=== PATIENT | female | born 1945 | race Caucasian/White ===

== ENCOUNTER 2019-05-24 17:34 | Emergency (ER) | payer MEDICARE ==
[2019-05-24] MEDS ORDERED: Sodium Chloride 0.9% 1000 ML 1,000 ML IV STA (18:00)
[2019-05-24] MEDS ORDERED: SUBLIMAZE 100 MCG/2 ML IV ONE (18:00)
[2019-05-24] MEDS ORDERED: Sodium Chloride 0.9% 1000 ML 1,000 ML ONE (18:14)
[2019-05-24] MEDS ORDERED: SUBLIMAZE 100 MCG/2 ML ONE (18:14)
--- NOTE | 2019-05-24 18:20 | ERPHSYRPT ---
- History of Present Illness Historian: patient Exam Limitations: no limitations Patient Subjective Stated Complaint: NIGHT SWEATING, CHILLS THIS AM, PAIN TO LEFT SIDE/ FLANK AND ABDOMEN, URGENCY, HESITANCY AND DIFFICULTY VOIDING. DENIES BURNING. Triage Nursing Assessment: PT ALERT AND ORIENTED. SITTING ON SIDE OF BED GUARDING LEFT SIDE, NO SHORTNESS OF BREATH OR CHEST PAIN. Timing/Duration: today Quality: cramping Abdominal Pain Onset Location: flank Pain Radiation: LLQ Severity of Pain-Max: moderate Severity of Pain-Current: moderate Hx Tetanus, Diphtheria Vaccination/Date Given: Yes (2012) Hx Influenza Vaccination/Date Given: No Hx Pneumococcal Vaccination/Date Given: No <YVONNE HELMS - Last Filed: 05/24/19 18:56> <LELA BONDS - Last Filed: 05/24/19 19:39> - History of Present Illness Time Seen by Provider: 05/24/19 18:18 Physician History: patient is 73-year-old female came to the emergency room with complaining of left-sided flank pain radiating to the left groin area 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 Patient is complaining of fever, chills and some burning urination. Patient states that she had a same symptoms like this when she had a kidney stone before. She denies any other symptoms. (YVONNE HELMS) Allergies/Adverse Reactions: hydrochlorothiazide Allergy (Verified 07/28/14 22:09) hydrocodone bitartrate [From Vicodin] Allergy (Verified 07/28/14 22:09) Home Medications: Clonidine HCl 0.2 mg PO BID 04/07/14 [History] Amlodipine Besylate 5 mg PO DAILY 05/24/19 [History] Lisinopril 20 mg [Zestril 20 MG] 40 mg PO DAILY 05/24/19 [History] carvediloL [Carvedilol] 6.25 mg PO BID 05/24/19 [History] - Review of Systems Constitutional: Fever, Chills Eyes: No Symptoms Ears, Nose, & Throat: No Symptoms Respiratory: No Cough, No Dyspnea Cardiac: No Chest Pain, No Edema, No Syncope Abdominal/Gastrointestinal: Abdominal Pain, No Nausea, No Vomiting, No Diarrhea Genitourinary Symptoms: Dysuria, Flank Pain (left side) Musculoskeletal: No Back Pain, No Neck Pain Skin: No Rash Neurological: No Dizziness, No Focal Weakness, No Sensory Changes Psychological: No Symptoms Endocrine: No Symptoms All Other Systems: Reviewed and Negative <SCOOTER,YVONNE - Last Filed: 05/24/19 18:56> - Past Medical History Pertinent Past Medical History: Yes Neurological History: Migraines ENT History: No Pertinent History Cardiac History: No Pertinent History, Hypertension Respiratory History: No Pertinent History Endocrine Medical History: No Pertinent History Musculoskeletal History: No Pertinent History GI Medical History: Gallbladder Disease History: Other Psycho-Social History: No Pertinent History Other Medical History: KIDNEY STONES - Past Surgical History Past Surgical History: Yes Gastrointestinal: Cholecystectomy Genitourinary: Kidney Surgery Musculoskeletal: Orthopedic Surgery Female Surgical History: Section, Tubal Ligation Other Surgical History: STENT TO BILATERAL KIDNEY, LEFT KNEE REPLACEMENT. LT THUMB. WISDOM TEETH - Social History Smoking Status: Never smoker Exposure to second hand smoke: No Drug Use: none Patient Lives Alone: No <SCOOTER,YVONNE - Last Filed: 05/24/19 18:56> - Physical Exam General Appearance: no apparent distress, alert Eye Exam: PERRL/EOMI, eyes nml inspection Ears, Nose, Throat Exam: normal ENT inspection, pharynx normal, moist mucous membranes Neck Exam: normal inspection, non-tender, supple, full range of motion Respiratory Exam: normal breath sounds, lungs clear, No respiratory distress Cardiovascular Exam: regular rate/rhythm, normal heart sounds Gastrointestinal/Abdomen Exam: soft, No tenderness, No mass Back Exam: normal inspection, normal range of motion, CVA tenderness (left side) , No vertebral tenderness Extremity Exam: normal inspection, normal range of motion, pelvis stable Neurologic Exam: alert, oriented x 3, cooperative, normal mood/affect, nml cerebellar function, sensation nml, No motor deficits Skin Exam: normal color, warm, dry <SCOOTER,YVONNE - Last Filed: 05/24/19 18:56> - Nursing Vital Signs Nursing Vital Signs: Initial Vital Signs Pulse Rate 62 05/24/19 17:34 Respiratory Rate 20 05/24/19 17:34 Blood Pressure 175/97 05/24/19 17:34 O2 Sat by Pulse Oximetry 98 05/24/19 17:34 Pain Scale Pain Intensity 7 - Course Nursing assessment & vital signs reviewed: Yes - CT Exams Abdomen/Pelvis CT Interpretation: Tele-radiologist Report <YVONNE HELMS - Last Filed: 05/24/19 18:56> - CT Exams Abdomen/Pelvis CT Interpretation: Other (Multiple left ureteral stones largest being 3.5 mm) <LELA BONDS - Last Filed: 05/24/19 19:39> Ordered Tests: Active Orders 24 hr Category Date Time Status ABDOMEN AND PELVIS W/0 CONTRAS [CT] Stat Exams 05/24/19 18:00 Taken CBC W DIFF Stat Lab 05/24/19 18:34 Completed CMP Stat Lab 05/24/19 18:34 Completed CULTURE,URINE Stat Lab 05/24/19 18:15 Received UA W/RFX UR CULTURE Stat Lab 05/24/19 18:15 Completed Medication Summary Generic Name Dose Route Start Last Admin Trade Name Freq PRN Reason Stop Dose Admin Tamsulosin HCl 0.4 mg 05/25/19 10:00 05/24/19 19:30 Flomax 0.4 Mg PO 06/24/19 09:59 0.4 mg DAILY SHERRY Administration Discontinued Medications Generic Name Dose Route Start Last Admin Trade Name Freq PRN Reason Stop Dose Admin Fentanyl Citrate 50 mcg 05/24/19 18:00 05/24/19 18:25 Sublimaze 100 Mcg/2 Ml IV 05/24/19 18:01 50 mcg STAT ONE Administration Fentanyl Citrate Confirm 05/24/19 18:14 Sublimaze 100 Mcg/2 Ml Administered 05/24/19 18:15 Dose 100 mcg .ROUTE .STK-MED ONE Sodium Chloride 1,000 mls @ 999 mls/hr 05/24/19 18:00 05/24/19 18:24 Sodium Chloride 0.9% 1000 Ml IV 05/24/19 19:00 999 mls/hr .Q1H1M STA Administration Sodium Chloride Confirm 05/24/19 18:14 Sodium Chloride 0.9% 1000 Ml Administered 05/24/19 18:15 Dose 1,000 mls @ ud .ROUTE .STK-MED ONE Ceftriaxone Sodium/Dextrose 1 g in 50 mls @ 100 mls/hr 05/24/19 18:43 18:59 Rocephin 1 Gm-D5w 50 Ml Bag IV 05/24/19 19:12 100 mls/hr STAT STA 100 mls/hr Administration Ceftriaxone Sodium/Dextrose Confirm 05/24/19 18:57 Rocephin 1 Gm-D5w 50 Ml Bag Administered 05/24/19 18:58 Dose 1 g in 50 mls @ ud IV .[facility] ONE Tamsulosin HCl Confirm 05/24/19 19:29 Flomax 0.4 Mg Administered 05/24/19 19:30 Dose 0.4 mg .ROUTE .STK-MED ONE Lab/Rad Data: Laboratory Result Diagrams 05/24/19 18:34 05/24/19 18:34 Laboratory Results 05/24/19 05/24/19 05/24/19 Range/Units 18:34 18:34 18:15 WBC 10.7 H (4.0-10.5) K/mm3 RBC 4.65 (4.1-5.4) M/mm3 Hgb 14.9 (12.0-16.0) gm/dl Hct 43.0 (35-47) % MCV 92.5 (78-100) fl MCH 32.0 (26-32) pg MCHC 34.7 (32-36) g/dl RDW 13.6 (11.5-14.0) % Plt Count 261 (150-450) K/mm3 MPV 10.5 (7.5-11.0) fl Gran % 80.9 H (36.0-66.0) % Eos # (Auto) 0.17 (0-0.5) Absolute Lymphs (auto) 1.22 (1.0-4.6) Absolute Monos (auto) 0.63 (0.0-1.3) Lymphocytes % 11.4 L (24.0-44.0) % Monocytes % 5.9 (0.0-12.0) % Eosinophils % 1.6 (0.00-5.0) % Basophils % 0.2 (0.0-0.4) % Absolute Granulocytes 8.69 H (1.4-6.9) Basophils # 0.02 (0-0.4) Sodium 142 (137-145) mmol/L Potassium 3.7 (3.5-5.1) mmol/L Chloride 109 H (98-107) mmol/L Carbon Dioxide 27 (22-30) mmol/L Anion Gap 10.4 (5-15) MEQ/L BUN 20 H (7-17) mg/dL Creatinine 0.84 (0.52-1.04) mg/dL Estimated GFR > 60.0 ML/MIN Glucose 100 (74-106) mg/dL Calcium 9.6 (8.4-10.2) mg/dL Total Bilirubin 0.50 (0.2-1.3) mg/dL AST 24 (14-36) U/L ALT 19 (0-35) U/L Alkaline Phosphatase 92 (38-126) U/L Serum Total Protein 7.6 (6.3-8.2) g/dL Albumin 4.2 (3.5-5.0) g/dL Urine Color YELLOW (YELLOW) Urine Appearance CLOUDY (CLEAR) Urine pH 5.0 (5-6) Ur Specific [place] 1.015 (1.005-1.025) Urine Protein NEGATIVE (Negative) Urine Ketones NEGATIVE (NEGATIVE) Urine Blood LARGE (0-5) Baldev/ul Urine Nitrite NEGATIVE (NEGATIVE) Urine Bilirubin NEGATIVE (NEGATIVE) Urine Urobilinogen 2 (0-1) mg/dL Ur Leukocyte Esterase NEGATIVE (NEGATIVE) Urine WBC (Auto) 11-15 (0-5) /HPF Urine RBC (Auto) >101 (0-2) /HPF U Epithel Cells (Auto) FEW (FEW) /HPF Urine Bacteria (Auto) MODERATE (NEGATIVE) /HPF Unidentified Crystals 25-50 (NEGATIVE) /HPF Urine Mucus (Auto) SLIGHT (NEGATIVE) /HPF Urine Culture Reflexed YES (NO) Urine Glucose NEGATIVE (NEGATIVE) mg/dL <YVONNE HELMS - Last Filed: 05/24/19 18:56> - Progress Progress: improved Will see patient in: office Counseled pt/family regarding: lab results, diagnosis, need for follow-up, rad results <LELA BONDS - Last Filed: 05/24/19 19:39> - Progress Progress Note: 05/24/19 19:14 Scan results show multiple left ureteral stones with the largest stone being 3.5 mm. Hydronephrosis and hydroureter also noted. Discussed with patient the results and patient would like to see Dr. Myles and be transferred to [facility]. 05/24/19 19:36 At 1910, spoke with Dr. Kan who is covering for Dr. Myles. Stated that patient can be seen as an outpatient if the pain is well controlled. Can be seen on Sunday by Dr. Myles for further management. Discussed with patient as well who states she would like to go home as long as she has medicines to take care of it. Although she lives alone she does have family support nearby. Prescribed Flomax, Percocet, Zofran ODT and will advise hydration. Will discharge home. (LELA BONDS) <YVONNE HELMS - Last Filed: 05/24/19 18:56> - Departure Departure Disposition: Home Critical Care Time: No <LELA BONDS - Last Filed: 05/24/19 19:39> - Departure Clinical Impression: Kidney calculus Condition: Stable Referrals: MAVERICK JACOB FILLER SHAKER [Primary Care Provider] - Follow Up with PCP/3 days NEY MYLES [COURTESY STAFF] - (Multiple left kidney stones, largest 3.5mm. Call on Sunday for appointment.) Instructions: Kidney Stones in Adults Additional Instructions: Drink plenty of water. Take medication as prescribed. Call Dr. Myles's office on Sunday for appointment and to be seen. Forms: Work/School Release Form Prescriptions: Ondansetron ODT 4 MG [Zofran Odt 4 mg] 4 mg PO Q6H PRN PRN #10 tab.rapdis PRN Reason: Vomiting Oxycodone HCl/Acetaminophen [Percocet 5-325 mg Tablet] 1 each PO Q6H PRN PRN 3 Days #12 tablet MDD 30mg PRN Reason: Pain Tamsulosin HCl 0.4 mg [Flomax 0.4 MG] 0.4 mg PO DAILY 5 Days #5 cap
[2019-05-24 18:22] LABS: Appearance CLOUDY (CLEAR); Bacteria MODERATE /HPF (NEGATIVE); Bilirubin NEGATIVE (NEGATIVE); Blood LARGE Ery/ul (0-5); Crystals Unidentified 25-50 /HPF (NEGATIVE); Epithelial Cells FEW /HPF (FEW); Glucose NEGATIVE (NEGATIVE); Ketones NEGATIVE (NEGATIVE); Leukocyte Esterase NEGATIVE (NEGATIVE); Mucus SLIGHT /HPF (NEGATIVE); Nitrite NEGATIVE (NEGATIVE); Protein,Urine Dip NEGATIVE (Negative); Specific Gravity 1.015 (1.005-1.025); Urobilinogen 2 mg/dL (0-1)
[2019-05-24 18:23] LABS: RBC >101 /HPF (0-2)
[2019-05-24 18:39] LABS: Absolute Neutrophil Ct (ANC) 8.69 (1.4-6.9); BASOPHIL % 0.2 % (0.0-0.4); Basophil (Absolute #) 0.02 (0-0.4); Eosinophil % 1.6 % (0.00-5.0); Eosinophil (Absolute #) 0.17 (0-0.5); Hemoglobin 14.9 gm/dl (12.0-16.0); Lymphocyte (Absolute #) 1.22 (1.0-4.6); Lymphocytes % 11.4 % (24.0-44.0); Mean Cell Volume 92.5 fl (78-100); Mean Corpuscular Hgb Concent. 34.7 g/dl (32-36); Mean Platelet Volume 10.5 fl (7.5-11.0); Monocyte (Absolute #) 0.63 (0.0-1.3); Monocytes % 5.9 % (0.0-12.0); Neutrophil % 80.9 % (36.0-66.0); Platelet Count 261 K/mm3 (150-450); Red Blood Count 4.65 M/mm3 (4.1-5.4); Red Cell Distribution Width 13.6 % (11.5-14.0); White Blood Count 10.7 K/mm3 (4.0-10.5)
[2019-05-24] MEDS ORDERED: ROCEPHIN 1 Gm-D5w 50 ml Bag** 1 G/50 ML IVPB IV STA (18:43)
[2019-05-24 18:51] LABS: ALBUMIN 4.2 g/dL (3.5-5.0); BLOOD UREA NITROGEN 20 mg/dL (7-17); CHLORIDE 109 mmol/L (98-107); Calcium 9.6 mg/dL (8.4-10.2); Carbon Dioxide 27 mmol/L (22-30); Creatinine 1 0.84 mg/dL (0.52-1.04); Glucose 100 mg/dL (74-106); Potassium 3.7 mmol/L (3.5-5.1); SGOT/AST 24 U/L (14-36); SODIUM 142 mmol/L (137-145); Total Protein 7.6 g/dL (6.3-8.2)
[2019-05-24 18:52] LABS: ALKALINE PHOSPHATASE 92 U/L (38-126); ANION GAP 10.4 MEQ/L (5-15); SGPT/ALT 19 U/L (0-35)
[2019-05-24] MEDS ORDERED: ROCEPHIN 1 Gm-D5w 50 ml Bag** 1 G/50 ML IVPB IV ONE (18:57)
[2019-05-24] MEDS ORDERED: Flomax 0.4 MG ONE (19:29)
[2019-05-24 20:12] VITALS: BP 187/97; PULSE 75; O2SAT 99
--- NOTE | 2019-05-24 21:24 | XRAY ---
Indication: Left flank pain. Multiple contiguous axial images obtained through the abdomen and pelvis without contrast as ordered. Comparison: CT renal stone study March 23, 2012. Lung bases are clear. Heart is not enlarged. Stable small hiatal hernia. Noncontrasted stomach and bowel loops appear nonobstructed. Normal appendix. Again scattered colonic diverticulosis, increased in the descending colon. No free fluid/air. Again previous cholecystectomy. New 3-4 mm distal left ureter calculus, approximately S2 level. Proximal left ureter is prominent along with moderate hydronephrosis and mild renal edema consistent with obstructive uropathy. There remains multiple bilateral renal microcalculi. Remaining liver, pancreas, spleen, adrenal glands, kidneys, ureters, and uterus appear unremarkable for noncontrast exam. Mild scattered aortoiliac calcifications without AAA. Osseous structures intact again with mild degenerative spondylosis throughout the spine and minimal grade 1 L4 spondylolisthesis. Impression: 1. New 3-4 mm distal left ureteral calculus producing obstruction as detailed. There remains multiple bilateral renal microcalculi. 2. Again incidental small hiatal hernia, colonic diverticulosis, and chronic bony findings. Comment: Preliminary interpretation was made by [facility]. No critical discrepancy.
[2019-05-25] MEDS ORDERED: Flomax 0.4 MG PO SCH (10:00)
== END 2019-05-24 20:12 | disposition home or self-care (01) ==
LOC: ED 17:34
DX: N20.0 Calculus of kidney (principal)
CPT/HCPCS: 36000; 36415; 74176; 80053; 81001; 85025; 87086; 96360; 96365; 96374; 99284; J0696; J3010; A9270-GY

== ENCOUNTER 2021-02-23 02:44 | Emergency (ER) | payer MEDICARE ==
[2021-02-23] MEDS ORDERED: TORAdol 30 mg Injection ONE (03:24)
[2021-02-23] MEDS ORDERED: Zofran 4 MG/2 ML VIAL ONE (03:24)
[2021-02-23] MEDS ORDERED: Sodium Chloride 0.9% 1000 ML 1,000 ML ONE (03:25)
[2021-02-23] MEDS ORDERED: MORPHINE SULFATE 4 MG INJ ONE (03:25)
[2021-02-23] MEDS: Zofran 4 MG/2 ML VIAL IV ONE (03:33)
[2021-02-23] MEDS: TORAdol 30 mg Injection IV ONE (03:33)
[2021-02-23] MEDS ORDERED: MORPHINE SULFATE 2 MG INJ ONE ×2 (03:35→06:47)
[2021-02-23] MEDS: MORPHINE SULFATE 2 MG INJ IV ONE ×2 (03:35→06:56)
[2021-02-23 03:39] LABS: Appearance CLEAR (CLEAR); Bilirubin NEGATIVE (NEGATIVE); Blood NEGATIVE Ery/ul (0-5); Epithelial Cells RARE /HPF (FEW); Glucose NEGATIVE (NEGATIVE); Ketones NEGATIVE (NEGATIVE); Leukocyte Esterase TRACE (NEGATIVE); Mucus SLIGHT /HPF (NEGATIVE); Nitrite NEGATIVE (NEGATIVE); Protein,Urine Dip NEGATIVE (Negative); Specific Gravity 1.005 (1.005-1.025); Urobilinogen NEGATIVE mg/dL (0-1)
[2021-02-23] MEDS: Sodium Chloride 0.9% 1000 ML 1,000 ML IV SCH (03:39)
[2021-02-23 03:41] LABS: Absolute Neutrophil Ct (ANC) 6.23 (1.4-6.9); BASOPHIL % 0.2 % (0.0-0.4); Basophil (Absolute #) 0.02 (0-0.4); Eosinophil % 1.7 % (0.00-5.0); Eosinophil (Absolute #) 0.14 (0-0.5); Hematocrit 42.3 % (35-47); Hemoglobin 13.7 gm/dl (12.0-16.0); Lymphocyte (Absolute #) 1.22 (1.0-4.6); Lymphocytes % 14.8 % (24.0-44.0); Mean Corpuscular Hemoglobin 30.4 pg (26-32); Mean Corpuscular Hgb Concent. 32.4 g/dl (32-36); Monocyte (Absolute #) 0.63 (0.0-1.3); Monocytes % 7.6 % (0.0-12.0); Neutrophil % 75.7 % (36.0-66.0); Platelet Count 227 K/mm3 (150-450); Red Cell Distribution Width 13.2 % (11.5-14.0); White Blood Count 8.2 K/mm3 (4.0-10.5)
--- NOTE | 2021-02-23 03:49 | ERPHSYRPT ---
- History of Present Illness Time Seen by Provider: 02/23/21 02:50 Historian: patient Exam Limitations: no limitations Physician History: This is a 75-year-old white female who presents with right flank pain that radiates into the right groin that has been present for several days. The symptoms were intermittent until approximately 10 PM when the pain was worsening and became more constant. Patient has history of recurrent ureterolithiasis on multiple occasions. She has a history of hypertension. Patient denies chest pain. She denies shortness of breath. Timing/Duration: yesterday (Worsened last night at 10 PM), day(s) (Intermittent for few days), worse Quality: aching Abdominal Pain Onset Location: flank (Right flank) Pain Radiation: groin (Right) Severity of Pain-Max: moderate (side) Severity of Pain-Current: moderate Modifying Factors: Improves With: nothing Associated Symptoms: denies symptoms Previous symptoms: same symptoms as today Allergies/Adverse Reactions: hydrochlorothiazide Allergy (Verified 02/23/21 06:39) hydrocodone bitartrate [From Vicodin] Allergy (Verified 02/23/21 06:39) Home Medications: Clonidine HCl 0.2 mg PO BID 04/07/14 [History] Amlodipine Besylate 5 mg PO DAILY 05/24/19 [History] Lisinopril 20 mg [Zestril 20 MG] 40 mg PO DAILY 05/24/19 [History] carvediloL [Carvedilol] 6.25 mg PO BID 05/24/19 [History] Hx Tetanus, Diphtheria Vaccination/Date Given: Yes (2012) Hx Influenza Vaccination/Date Given: No Hx Pneumococcal Vaccination/Date Given: No Travel Risk - International Travel Have you traveled outside of the country in past 3 weeks: No - Coronavirus Screening Are you exhibiting any of the following symptoms?: No Close contact with a COVID-19 positive Pt in past 14-21 Days: No - Review of Systems Constitutional: No Symptoms Eyes: No Symptoms Ears, Nose, & Throat: No Symptoms Respiratory: No Symptoms Cardiac: No Symptoms Genitourinary Symptoms: Flank Pain (Right side) Musculoskeletal: No Symptoms Skin: No Symptoms Neurological: No Symptoms Psychological: No Symptoms Endocrine: No Symptoms Hematologic/Lymphatic: No Symptoms Immunological/Allergic: No Symptoms All Other Systems: Reviewed and Negative - Past Medical History Pertinent Past Medical History: Yes Neurological History: Migraines ENT History: No Pertinent History Cardiac History: No Pertinent History, Hypertension Respiratory History: No Pertinent History Endocrine Medical History: No Pertinent History Musculoskeletal History: No Pertinent History GI Medical History: Gallbladder Disease History: Other Psycho-Social History: No Pertinent History Other Medical History: KIDNEY STONES - Past Surgical History Past Surgical History: Yes Gastrointestinal: Cholecystectomy Genitourinary: Kidney Surgery Musculoskeletal: Orthopedic Surgery Female Surgical History: Section, Tubal Ligation Other Surgical History: STENT TO BILATERAL KIDNEY, LEFT KNEE REPLACEMENT. LT THUMB. WISDOM TEETH - Social History Smoking Status: Never smoker Exposure to second hand smoke: No Drug Use: none Patient Lives Alone: No - Nursing Vital Signs Nursing Vital Signs: Initial Vital Signs Temperature 98.4 F 02/23/21 02:46 Pulse Rate 68 02/23/21 02:46 Respiratory Rate 18 02/23/21 02:46 Blood Pressure 179/84 02/23/21 02:46 O2 Sat by Pulse Oximetry 97 02/23/21 02:46 Pain Scale Pain Intensity 4 - Physical Exam General Appearance: mild distress, alert, anxiety, obese Eye Exam: PERRL/EOMI, eyes nml inspection Ears, Nose, Throat Exam: normal ENT inspection, moist mucous membranes Neck Exam: normal inspection, non-tender, supple, full range of motion Respiratory Exam: normal breath sounds, lungs clear, airway intact, No chest tenderness, No respiratory distress Cardiovascular Exam: regular rate/rhythm, normal heart sounds, normal peripheral pulses Gastrointestinal/Abdomen Exam: soft, normal bowel sounds, No tenderness Pelvic Exam: not done Rectal Exam: not done Back Exam: normal inspection, normal range of motion, CVA tenderness (Right side), No vertebral tenderness Extremity Exam: normal inspection, normal range of motion, pelvis stable Neurologic Exam: alert, oriented x 3, cooperative, estimating manager II-XII nml as tested, normal mood/affect, nml cerebellar function, nml station & gait, sensation nml Skin Exam: normal color, warm, dry Lymphatic Exam: No adenopathy SpO2 Interpretation: normal O2 Delivery: Room Air - Course Nursing assessment & vital signs reviewed: Yes Ordered Tests: Active Orders 24 hr Category Date Time Status IV Insertion STAT Care 02/23/21 03:13 Active ABDOMEN AND PELVIS W/0 CONTRAS [CT] Stat Exams 02/23/21 04:52 Taken AMYLASE Stat Lab 02/23/21 03:36 Completed CBC W DIFF Stat Lab 02/23/21 03:36 Completed CMP Stat Lab 02/23/21 03:36 Completed LIPASE Stat Lab 02/23/21 03:36 Completed Lactic Acid Stat Lab 02/23/21 04:45 Completed UA W/RFX UR CULTURE Stat Lab 02/23/21 03:14 Completed Medication Summary Generic Name Dose Route Start Last Admin Trade Name Indy PRN Reason Stop Dose Admin Sodium Chloride 1,000 mls @ 100 mls/hr 02/23/21 03:15 02/23/21 03:39 Sodium Chloride 0.9% 1000 Ml IV 03/25/21 03:14 100 mls/hr .Q10H SHERRY Administration Ceftriaxone Sodium/Dextrose 1 g in 50 mls @ 100 mls/hr 02/23/21 06:39 Rocephin 1 Gm-D5w 50 Ml Bag IV 02/23/21 07:08 STAT STA Discontinued Medications Generic Name Dose Route Start Last Admin Trade Name Indy PRN Reason Stop Dose Admin Ketorolac Tromethamine 30 mg 02/23/21 03:15 02/23/21 03:33 Ketorolac Tromethamine 30 Mg/Ml Inj IV 02/23/21 03:16 30 mg STAT ONE Administration Ketorolac Tromethamine Confirm 02/23/21 03:24 Ketorolac Tromethamine 30 Mg/Ml Inj Administered 02/23/21 03:25 Dose 30 mg .ROUTE .STK-MED ONE Morphine Sulfate 2 mg 02/23/21 03:15 02/23/21 03:35 Morphine Sulfate 2 Mg/Ml Inj IV 02/23/21 03:16 2 mg STAT ONE Administration Morphine Sulfate Confirm 02/23/21 03:25 Morphine Sulfate 4 Mg/Ml Injection Administered 02/23/21 03:26 Dose 4 mg .ROUTE .STK-MED ONE Morphine Sulfate Confirm 02/23/21 03:35 Morphine Sulfate 2 Mg/Ml Inj Administered 02/23/21 03:36 Dose 2 mg .ROUTE .STK-MED ONE Morphine Sulfate 2 mg 02/23/21 06:36 Morphine Sulfate 2 Mg/Ml Inj IV 02/23/21 06:37 STAT ONE Ondansetron HCl 4 mg 02/23/21 03:13 02/23/21 03:33 Ondansetron Hcl 4 Mg/2 Ml Vial IV 02/23/21 03:14 4 mg STAT ONE Administration Ondansetron HCl Confirm 02/23/21 03:24 Ondansetron Hcl 4 Mg/2 Ml Vial Administered 02/23/21 03:25 Dose 4 mg .ROUTE .STK-MED ONE Lab/Rad Data: Laboratory Result Diagrams 02/23/21 03:36 02/23/21 03:36 Laboratory Results 02/23/21 02/23/21 02/23/21 Range/Units 04:45 03:36 03:36 WBC 8.2 (4.0-10.5) K/mm3 RBC 4.50 (4.1-5.4) M/mm3 Hgb 13.7 (12.0-16.0) gm/dl Hct 42.3 (35-47) % MCV 94.0 (78-100) fl MCH 30.4 (26-32) pg MCHC 32.4 (32-36) g/dl RDW 13.2 (11.5-14.0) % Plt Count 227 (150-450) K/mm3 MPV 10.0 (7.5-11.0) fl Gran % 75.7 H (36.0-66.0) % Eos # (Auto) 0.14 (0-0.5) Absolute Lymphs (auto) 1.22 (1.0-4.6) Absolute Monos (auto) 0.63 (0.0-1.3) Lymphocytes % 14.8 L (24.0-44.0) % Monocytes % 7.6 (0.0-12.0) % Eosinophils % 1.7 (0.00-5.0) % Basophils % 0.2 (0.0-0.4) % Absolute Granulocytes 6.23 (1.4-6.9) Basophils # 0.02 (0-0.4) Sodium 139 (137-145) mmol/L Potassium 4.1 (3.5-5.1) mmol/L Chloride 107 (98-107) mmol/L Carbon Dioxide 23 (22-30) mmol/L Anion Gap 13.3 (5-15) MEQ/L BUN 21 H (7-17) mg/dL Creatinine 1.03 (0.52-1.04) mg/dL Estimated GFR 55.7 ML/MIN Glucose 99 (74-106) mg/dL Lactic Acid 1.1 (0.4-2.0) Calcium 9.3 (8.4-10.2) mg/dL Total Bilirubin 0.70 (0.2-1.3) mg/dL AST 23 (14-36) U/L ALT 20 (0-35) U/L Alkaline Phosphatase 81 (38-126) U/L Serum Total Protein 6.6 (6.3-8.2) g/dL Albumin 3.8 (3.5-5.0) g/dL Amylase 50 (30-110) U/L Lipase 78 (23-300) U/L Urine Color (YELLOW) Urine Appearance (CLEAR) Urine pH (5-6) Ur Specific [place] (1.005-1.025) Urine Protein (Negative) Urine Ketones (NEGATIVE) Urine Blood (0-5) Baldev/ul Urine Nitrite (NEGATIVE) Urine Bilirubin (NEGATIVE) Urine Urobilinogen (0-1) mg/dL Ur Leukocyte Esterase (NEGATIVE) Urine WBC (Auto) (0-5) /HPF Urine RBC (Auto) (0-2) /HPF U Epithel Cells (Auto) (FEW) /HPF Urine Bacteria (Auto) (NEGATIVE) /HPF Urine Mucus (Auto) (NEGATIVE) /HPF Urine Culture Reflexed (NO) Urine Glucose (NEGATIVE) mg/dL 02/23/21 Range/Units 03:14 WBC (4.0-10.5) K/mm3 RBC (4.1-5.4) M/mm3 Hgb (12.0-16.0) gm/dl Hct (35-47) % MCV (78-100) fl MCH (26-32) pg MCHC (32-36) g/dl RDW (11.5-14.0) % Plt Count (150-450) K/mm3 MPV (7.5-11.0) fl Gran % (36.0-66.0) % Eos # (Auto) (0-0.5) Absolute Lymphs (auto) (1.0-4.6) Absolute Monos (auto) (0.0-1.3) Lymphocytes % (24.0-44.0) % Monocytes % (0.0-12.0) % Eosinophils % (0.00-5.0) % Basophils % (0.0-0.4) % Absolute Granulocytes (1.4-6.9) Basophils # (0-0.4) Sodium (137-145) mmol/L Potassium (3.5-5.1) mmol/L Chloride (98-107) mmol/L Carbon Dioxide (22-30) mmol/L Anion Gap (5-15) MEQ/L BUN (7-17) mg/dL Creatinine (0.52-1.04) mg/dL Estimated GFR ML/MIN Glucose (74-106) mg/dL Lactic Acid (0.4-2.0) Calcium (8.4-10.2) mg/dL Total Bilirubin (0.2-1.3) mg/dL AST (14-36) U/L ALT (0-35) U/L Alkaline Phosphatase (38-126) U/L Serum Total Protein (6.3-8.2) g/dL Albumin (3.5-5.0) g/dL Amylase (30-110) U/L Lipase (23-300) U/L Urine Color STRAW (YELLOW) Urine Appearance CLEAR (CLEAR) Urine pH 6.0 (5-6) Ur Specific [place] 1.005 (1.005-1.025) Urine Protein NEGATIVE (Negative) Urine Ketones NEGATIVE (NEGATIVE) Urine Blood NEGATIVE (0-5) Baldev/ul Urine Nitrite NEGATIVE (NEGATIVE) Urine Bilirubin NEGATIVE (NEGATIVE) Urine Urobilinogen NEGATIVE (0-1) mg/dL Ur Leukocyte Esterase TRACE (NEGATIVE) Urine WBC (Auto) 3-5 (0-5) /HPF Urine RBC (Auto) NONE (0-2) /HPF U Epithel Cells (Auto) RARE (FEW) /HPF Urine Bacteria (Auto) NONE (NEGATIVE) /HPF Urine Mucus (Auto) SLIGHT (NEGATIVE) /HPF Urine Culture Reflexed NO (NO) Urine Glucose NEGATIVE (NEGATIVE) mg/dL - Progress Progress: improved, pain not gone completely Progress Note: 02/23/21 06:40 CAT scan of the abdomen pelvis without contrast shows moderate to severe right hydronephrosis to the level a 1 cm calculus in the distal right ureter with extensive right perinephric fat stranding. Medical decision making: This patient needs urgent urologic intervention. Patient's urologist is Dr. Myles at [facility]. I spoke with Dr. Soares, the emergency room physician at the facility. I reviewed the patient history, medical condition, physical findings and radiographic results with him. He accepts the patient in transfer. Counseled pt/family regarding: lab results, diagnosis, rad results - Departure Departure Disposition: Transfer Clinical Impression: Ureterolithiasis, Hydroureter on right, Hydronephrosis due to obstruction of ureter Condition: Stable Critical Care Time: No Referrals: MAVERICK JACOB, LINOTYPE MACHINIST APPRENTICE [Primary Care Provider] - Follow up/PCP as directed
[2021-02-23 03:52] LABS: ALBUMIN 3.8 g/dL (3.5-5.0); ANION GAP 13.3 MEQ/L (5-15); BILIRUBIN,TOTAL 0.7 mg/dL (0.2-1.3); Calcium 9.3 mg/dL (8.4-10.2); Creatinine 1 1.03 mg/dL (0.52-1.04); EST GLOMERULAR FILTRATION RATE 55.7 ML/MIN; Potassium 4.1 mmol/L (3.5-5.1); Total Protein 6.6 g/dL (6.3-8.2)
[2021-02-23] MEDS ORDERED: ROCEPHIN 1 Gm-D5w 50 ml Bag** 1 G/50 ML IVPB IV ONE (06:48)
[2021-02-23] MEDS: ROCEPHIN 1 Gm-D5w 50 ml Bag** 1 G/50 ML IVPB IV STA (06:56)
[2021-02-23 07:19] VITALS: BP 180/91; PULSE 76; O2SAT 96
--- NOTE | 2021-02-23 08:58 | XRAY ---
Indication: Right flank pain. History stones. Multiple contiguous axial images obtained through the abdomen and pelvis without contrast. Comparison: May 24, 2019 Lung bases now demonstrates mild bibasilar dependent of the cysts and tiny bibasilar effusions. Heart borderline enlarged. Stable small hiatal hernia. New 1 cm right mid ureter calculus, approximately S3 level. Proximal right ureter distention and significant hydronephrosis consistent with high-grade obstruction. No perinephric fluid. There remains multiple bilateral renal calculi. Noncontrasted stomach and bowel loops nonobstructed with again normal appendix and scattered colonic diverticulosis. Again cholecystectomy. No free fluid/air. Remaining liver, pancreas, spleen, adrenal glands, bladder, and uterus are unremarkable for noncontrast exam. There remains mild scattered aortoiliac calcifications without AAA. Osseous structures intact again with mild osteopenia, mild multilevel thoracolumbar degenerative spondylosis, and minimal grade 1 L4 spondylolisthesis. Impression: 1. New 1 cm right mid ureter calculus producing high-grade obstruction as detailed. There remains multiple bilateral renal calculi. 2. Again incidental small hiatal hernia, colonic diverticulosis, and chronic bony findings. Comment: Preliminary interpretation made by [facility]. No critical discrepancy.
== END 2021-02-23 07:35 | disposition short-term general hospital (02) ==
LOC: ED 02:44
DX: N13.2 Hydronephrosis with renal and ureteral calculous obstruction (principal); Z87.442 Personal history of urinary calculi; N13.4 Hydroureter; I10 Essential (primary) hypertension
CPT/HCPCS: 36000; 36415; 74176; 80053; 81001; 82150; 83605; 83690; 85025; 96365; 96374; 96375; 96376; 99285; J0696; J1885; J2270; J2405

== ENCOUNTER 2022-02-22 19:12 | Emergency (ER) | payer MEDICARE ==
[2022-02-22] MEDS ORDERED: Adacel Vial IM ONE ×2 (19:55→20:03)
--- NOTE | 2022-02-22 20:38 | XRAY ---
Indication: Pain following fall. Comparison: None 3 view right knee demonstrates osteopenia and total knee arthroplasty with intact articulation/prosthesis. No other bony, articular, or soft tissue abnormalities.
--- NOTE | 2022-02-22 20:41 | XRAY ---
Indication: Status post fall. Forehead laceration. Multiple contiguous axial images obtained through the head without contrast. Comparison: None Age-appropriate global atrophy and moderate periventricular degenerative micro-ischemia bilaterally. No acute intracranial hemorrhage, abnormal extra-axial fluid collection, or mass effect. Fourth ventricle is midline without hydrocephalus. Small left frontal scalp hematoma. Bony calvarium intact. Paranasal sinuses and mastoid air cells are clear. Impression: Small left frontal scalp hematoma. Otherwise nonacute senile brain.
--- NOTE | 2022-02-22 20:43 | XRAY ---
Indication: Status post fall. Forehead laceration. Multiple contiguous axial images obtained through the cervical spine. Sagittal and coronal reformatted images obtained. Comparison: None Age-related osteopenia. Axial images negative for acute fracture, suspicious bony lesions, or spinal canal stenosis. Moderate atlantoaxial degenerative changes. Facets are symmetric. Sagittal and coronal reformatted images as well as is normal alignment with vertebral body heights/disc spaces maintained. No acute compression fracture, subluxation, or jumped facet. Normal appearing craniocervical junction. Visualized noncontrasted soft tissues demonstrates mildly enlarged heterogeneous thyroid gland with left lobe calcifications. Lung apices are clear. Impression: 1. Negative acute fracture/subluxation. 2. Incidental osteopenia and heterogeneity enlarged thyroid gland with left lobe calcifications.
[2022-02-22] MEDS ORDERED: XYLOCAINE 1%/Epi 1:100000 MDV 20 ML ONE (21:13)
--- NOTE | 2022-02-22 22:00 | ERPHSYRPT ---
- History of Present Illness Time Seen by Provider: 02/22/22 19:48 Source: patient Exam Limitations: no limitations Patient Subjective Stated Complaint: pt states she was outside and tripped in the dark. states she hit her foreheand and chin on the concrete. denies any loc. Triage Nursing Assessment: pt alert and oriented, answers questions approp. pt resting in bed comfortalby with c collar in place. respirations nonlabored. pupils equal and reactive. bilat upper and lower ext strength equal and wnl. Physician History: Patient has a head laceration. Mechanical fall just prior to arrival. Complaining of some right knee pain, neck pain, headache. Patient states that she was feeding some lezama for her friends. States that she turned too quickly and tripped. Presented with laceration to the ER today. Occurred: just prior to arrival Reason for Fall: lost balance Injuries/Pain Location: no injury Loss of Consciousness: no loss of consciousness Quality: aching Allergies/Adverse Reactions: hydrochlorothiazide Allergy (Verified 02/22/22 20:03) hydrocodone bitartrate [From Vicodin] Allergy (Verified 02/22/22 20:03) Home Medications: cloNIDine HCL [Clonidine HCl] 0.2 mg PO BID 04/07/14 [History] Amlodipine Besylate 5 mg PO DAILY 05/24/19 [History] Lisinopril 20 mg [Zestril 20 MG] 40 mg PO DAILY 05/24/19 [History] carvediloL [Carvedilol] 12.5 mg PO BID 05/24/19 [History] Hx Tetanus, Diphtheria Vaccination/Date Given: Yes (2012) Hx Influenza Vaccination/Date Given: No Hx Pneumococcal Vaccination/Date Given: No Immunizations Up to Date: Yes Travel Risk - International Travel Have you traveled outside of the country in past 3 weeks: No - Coronavirus Screening Are you exhibiting any of the following symptoms?: No Close contact with a COVID-19 positive Pt in past 14-21 Days: No - Vaccine Status Have you recieved a Covid-19 vaccination: Yes Belt Maker: [facility] - Vaccination Dates Comment: had booster shot also - Review of Systems Constitutional: No Fever, No Chills Eyes: No Symptoms Ears, Nose, & Throat: No Symptoms, Other (Head laceration, headache) Respiratory: No Cough, No Dyspnea Cardiac: No Chest Pain, No Edema, No Syncope Abdominal/Gastrointestinal: No Abdominal Pain, No Nausea, No Vomiting, No Diarrhea Genitourinary Symptoms: No Dysuria Musculoskeletal: Other (Right knee pain), No Back Pain, No Neck Pain Skin: No Rash Neurological: No Dizziness, No Focal Weakness, No Sensory Changes Psychological: No Symptoms Endocrine: No Symptoms All Other Systems: Reviewed and Negative - Past Medical History Pertinent Past Medical History: Yes Neurological History: Migraines ENT History: No Pertinent History Cardiac History: No Pertinent History, Hypertension Respiratory History: No Pertinent History Endocrine Medical History: No Pertinent History Musculoskeletal History: No Pertinent History GI Medical History: Gallbladder Disease History: Other Psycho-Social History: No Pertinent History Other Medical History: KIDNEY STONES - Past Surgical History Past Surgical History: Yes Gastrointestinal: Cholecystectomy Genitourinary: Kidney Surgery Musculoskeletal: Orthopedic Surgery Female Surgical History: Section, Tubal Ligation Other Surgical History: STENT TO BILATERAL KIDNEY, LEFT KNEE REPLACEMENT. LT THUMB. WISDOM TEETH - Social History Smoking Status: Never smoker Exposure to second hand smoke: No Drug Use: none Patient Lives Alone: No - Nursing Vital Signs Nursing Vital Signs: Initial Vital Signs Temperature 97.2 F 02/22/22 19:53 Pulse Rate 73 02/22/22 19:53 Respiratory Rate 18 02/22/22 19:53 Blood Pressure 177/92 02/22/22 19:53 O2 Sat by Pulse Oximetry 98 02/22/22 19:53 Pain Scale Pain Intensity 4 - Sharda Coma Score Best Eye Response ([place]): (4) open spontaneously Best Verbal Response (Sharda): (5) oriented Best Motor Response ([place]): (6) obeys commands Sharda Total: 15 - Physical Exam General Appearance: no apparent distress, alert Head Injury: tenderness (5 cm head laceration over patient's forehead) Eye Exam: PERRL/EOMI ENT Exam: airway nml Neck Exam: normal inspection, No tenderness Respiratory/Chest Exam: normal breath sounds, No chest tenderness, No respiratory distress Cardiovascular Exam: normal heart sounds, regular rate/rhythm Gastrointestinal Exam: soft, No tenderness, No distention, No guarding, No ecchymosis Back Exam: normal inspection, No vertebral tenderness Extremity Exam: normal inspection, normal range of motion, pelvis stable, other (Right knee tenderness no abrasions, overlying skin changes), No deformities Neurologic Exam: alert, oriented x 3, cooperative, sensation nml, No motor deficits Skin Exam: normal color, warm, dry SpO2: 99 Procedures - Laceration/Wound Repair Head Wound Location: forehead Wound Length (cm): 5 Wound's Depth, Shape: linear Wound Explored: clean Irrigated: Yes Hibiclens Prep: Yes Anesthesia: 1% lidocaine w/ Epi Volume Anesthetic (ccs): 7 Wound Debrided: minimal Wound Repaired With: sutures Suture Size/Type: 5-0, prolene Number of Sutures: 5 Layer Closure?: No Sterile Dressing Applied?: Yes - Course Nursing assessment & vital signs reviewed: Yes Ordered Tests: Active Orders 24 hr Category Date Time Status CERVICAL SPINE WO CONTRAST [CT] Stat Exams 02/22/22 19:54 Completed HEAD WITHOUT CONTRAST [CT] Stat Exams 02/22/22 19:53 Completed KNEE (3 VIEWS) Stat Exams 02/22/22 20:19 Completed Medication Summary Discontinued Medications Generic Name Dose Route Start Last Admin Trade Name Freq PRN Reason Stop Dose Admin Diphtheria/Tetanus/Acell Pertussis 0.5 ml 02/22/22 19:55 02/22/22 20:05 Tdap --Diph,Pertuss(Acell),Tet Vac/Pf 0.5 Ml Vial IM 02/22/22 19:56 0.5 ml .ONCE ONE Administration Diphtheria/Tetanus/Acell Pertussis Confirm 02/22/22 20:03 Tdap --Diph,Pertuss(Acell),Tet Vac/Pf 0.5 Ml Vial Administered 02/22/22 20:04 Dose 0.5 ml IM .STK-MED ONE Lidocaine/Epinephrine Confirm 02/22/22 21:13 Lidocaine Hcl/Epinephrine 1% 20 Ml Administered 02/22/22 21:14 Dose 1 ml .ROUTE .STK-MED ONE - Progress Progress: improved Progress Note: 02/23/22 00:23 We obtained a head CT, CT C-spine, x-ray right knee. This demonstrated no fractures, other acute trauma. Head laceration was repaired. See procedure note for full details. Patient will need sutures out in 5 days. Return here sooner for new or changing symptoms. I did discuss concussion with the patient Will see patient in: office Counseled pt/family regarding: diagnosis, rad results - Departure Departure Disposition: Home Clinical Impression: Concussion, Laceration of forehead without complication, Right knee pain Condition: Stable Critical Care Time: No Referrals: ASPEN MURO [Primary Care Provider] - Follow up/PCP as directed Instructions: Concussion, Adult (DC) Additional Instructions: Suture removal in 5 days with PCP. Return here sooner for any new or changing symptoms.
[2022-02-22 22:31] VITALS: BP 163/86; PULSE 78
[2022-02-23 00:24] VITALS: O2SAT 99
== END 2022-02-22 22:32 | disposition home or self-care (01) ==
LOC: ED 19:12
DX: S01.81XA Laceration without foreign body of other part of head, initial encounter (principal); S06.0X0A Concussion without loss of consciousness, initial encounter; W01.10XA Fall on same level from slipping, tripping and stumbling with subsequent striking against unspecified object, initial encounter; Y93.K9 Activity, other involving animal care; M25.561 Pain in right knee; M54.2 Cervicalgia; R51.9 Headache, unspecified; I10 Essential (primary) hypertension; Z79.899 Other long term (current) drug therapy
CPT/HCPCS: 12002; 70450; 72125; 73562; 90471; 90715; 99283

== ENCOUNTER 2024-03-05 10:31 | Emergency (ER) | payer MEDICARE, MEDICAID ==
[2024-03-05 11:51] VITALS: TEMP 97.4
--- NOTE | 2024-03-05 12:01 | ERPHSYRPT ---
- History of Present Illness Time Seen by Provider: 03/05/24 11:14 Source: patient, family Exam Limitations: no limitations Patient Subjective Stated Complaint: C/O dizziness and hypotension that started yesterday. States took all of her routine HTN medications (clonidine, coreg, lisinopril, norvasc) at 0700 this am. Triage Nursing Assessment: Patient ambulated back to ER without difficulties. She is alert and oriented. No SOB. KINSEY WNL. Current B/P in right arm is 129/67. Current B/P in left arm is 124/69; both taken at rest sitting up in bed. Orthostatic B/P then obtained and placed in chart. Physician History: 78 years old female with history of hypertension taking 4 antihypertensives presented in the ER with complains of feeling dizzy lightheaded and low blood pressure this morning. Patient reports she took her medicine around 7 this morning and at 830 he started to feel dizzy, checked her blood pressure and it was 82 systolic. She denies having any chest pain palpitations or shortness of breath. No numbness tingling or focal weakness. Patient blood pressure on presentation is in 120s with negative orthostatics. She has minimal to no dizziness right now. Patient reports her blood pressure is usually stays in low 100 and her PCP is planning to take her off of 1 antihypertensives. Does report having some cold chills yesterday but no fever Allergies/Adverse Reactions: hydrochlorothiazide Allergy (Verified 03/05/24 11:36) hydrocodone bitartrate [From Vicodin] Allergy (Verified 03/05/24 11:36) Home Medications: cloNIDine HCL [Clonidine HCl] 0.2 mg PO BID 04/07/14 [History] Amlodipine Besylate 5 mg PO DAILY 05/24/19 [History] Lisinopril 20 mg [Zestril 20 MG] 20 mg PO DAILY 05/24/19 [History] carvediloL [Carvedilol] 12.5 mg PO BID 05/24/19 [History] Hx Tetanus, Diphtheria Vaccination/Date Given: Yes Hx Influenza Vaccination/Date Given: Yes Hx Pneumococcal Vaccination/Date Given: Yes Immunizations Up to Date: Yes Travel Risk - International Travel Have you traveled outside of the country in past 3 weeks: No - Emerging Infectious Disease Are you exhibiting symptoms associated with any current EIDs: No - Review of Systems Constitutional: Chills Eyes: No Symptoms Ears, Nose, & Throat: No Symptoms Respiratory: No Symptoms Cardiac: No Symptoms Abdominal/Gastrointestinal: No Symptoms Genitourinary Symptoms: No Symptoms Musculoskeletal: Arthralgias Skin: No Symptoms Neurological: Dizziness Psychological: No Symptoms Endocrine: No Symptoms Hematologic/Lymphatic: No Symptoms - Past Medical History Pertinent Past Medical History: Yes Neurological History: Migraines ENT History: No Pertinent History Cardiac History: No Pertinent History, Hypertension Respiratory History: No Pertinent History Endocrine Medical History: No Pertinent History Musculoskeletal History: No Pertinent History GI Medical History: Gallbladder Disease History: Other Psycho-Social History: No Pertinent History Other Medical History: KIDNEY STONES - Past Surgical History Past Surgical History: Yes Gastrointestinal: Cholecystectomy Genitourinary: Kidney Surgery Musculoskeletal: Orthopedic Surgery Female Surgical History: Section, Tubal Ligation Other Surgical History: STENT TO BILATERAL KIDNEY, LEFT Knee Reshaped, Right knee replaced. LT THUMB. WISDOM TEETH - Social History Smoking Status: Never smoker Exposure to second hand smoke: No Drug Use: none Patient Lives Alone: No - Social Determinants of Health Will the patient participate in the screening: Yes Do you worry about a steady place to live?: No Do you have any problems with any of the following?: No known problems In the past 12 months,have you had to go without utilities?: No Transportation Issues: No Has anyone in your support network made you feel unsafe?: No Have you or anyone in your house had to go without enough: No - Nursing Vital Signs Nursing Vital Signs: Initial Vital Signs Temperature 97.4 F 03/05/24 11:38 Pulse Rate 79 03/05/24 11:38 Respiratory Rate 18 03/05/24 11:38 Blood Pressure 129/67 03/05/24 11:38 O2 Sat by Pulse Oximetry 98 03/05/24 11:38 Pain Scale Pain Intensity 0 - Physical Exam General Appearance: no apparent distress Eye Exam: PERRL/EOMI Ears, Nose, Throat Exam: normal ENT inspection Neck Exam: normal inspection, non-tender, supple, full range of motion Respiratory Exam: normal breath sounds, lungs clear Cardiovascular Exam: regular rate/rhythm, normal heart sounds Gastrointestinal/Abdomen Exam: soft, normal bowel sounds, No tenderness Back Exam: normal inspection Extremity Exam: normal inspection, normal range of motion Neurologic Exam: alert, oriented x 3, cooperative, frozen meat cutter II-XII nml as tested, normal mood/affect, nml cerebellar function, sensation nml, No motor deficits Skin Exam: normal color SpO2 Interpretation: normal SpO2: 98 O2 Delivery: Room Air - Course EKG Interpreted by Me: RATE (74), Sinus Rhythm, NORMAL AXIS, NORMAL QRS, Other (Prolonged NE interval) Ordered Tests: Active Orders 24 hr Category Date Time Status Platform Attendant STAT Care 03/05/24 11:57 Active EKG-ER Only STAT Care 03/05/24 11:56 Active IV Insertion STAT Care 03/05/24 11:56 Active CHEST 1 VIEW (PORTABLE) Stat Exams 03/05/24 11:57 Completed CBC W DIFF Stat Lab 03/05/24 12:07 Completed CMP Stat Lab 03/05/24 12:07 Completed CULTURE,URINE Stat Lab 03/05/24 13:11 Received Lactic Acid Stat Lab 03/05/24 12:11 Completed MAGNESIUM Stat Lab 03/05/24 12:07 Completed Manual Differential NC Stat Lab 03/05/24 12:07 Completed NT PRO BNPII Stat Lab 03/05/24 12:07 Completed TROPONIN Q4H Lab 03/05/24 12:07 Completed TROPONIN Q4H Lab 03/05/24 16:00 Ordered TROPONIN Q4H Lab 03/05/24 20:00 Ordered UA W/RFX UR CULTURE Stat Lab 03/05/24 13:11 Completed Lab/Rad Data: Laboratory Result Diagrams 03/05/24 12:07 03/05/24 12:07 Laboratory Results 03/05/24 03/05/24 03/05/24 Range/Units 13:11 12:11 12:07 WBC (3.98-10.04) x10^3/uL RBC (3.93-5.22) x10^6/uL Hgb (11.2-15.7) g/dL Hct (34.1-44.9) % MCV (79.4-94.8) fL MCH (25.6-32.2) pg MCHC (32.2-35.5) g/dL RDW (11.7-14.4) % Plt Count (182-369) x10^3/uL MPV (9.4-12.3) fL Segmented Neutrophils (34.0-71.1) % Lymphocytes (Manual) (19.3-51.7) % Monocytes (Manual) (4.7-12.5) % Basophils (Manual) (0.1-1.2) % Platelet Estimate (NORMAL) RBC Morphology Sodium (135-145) mmol/L Potassium (3.5-5.1) mmol/L Chloride (98-107) mmol/L Carbon Dioxide (22-30) mmol/L Anion Gap (5-15) MEQ/L BUN (7-17) mg/dL Creatinine (0.52-1.04) mg/dL Estimated GFR ML/MIN Glucose (74-106) mg/dL Lactic Acid 0.9 (0.4-2.0) Calcium (8.4-10.2) mg/dL Magnesium (1.6-2.3) mg/dL Total Bilirubin (0.2-1.3) mg/dL AST (14-36) U/L ALT (0-35) U/L Alkaline Phosphatase (38-126) U/L Troponin I < 0.012 (0.000-0.033) ng/mL NT-Pro-B Natriuret Pep 872 (<300) pg/mL Serum Total Protein (6.3-8.2) g/dL Albumin (3.5-5.0) g/dL Urine Color Dark Yellow A (Yellow) Urine Appearance Cloudy A (Clear) Urine pH 5.0 (4.6-8.0) Ur Specific [place] 1.025 (1.005-1.030) Urine Protein 30 (Negative) Urine Glucose (UA) Negative (Negative) mg/dL Urine Ketones Trace A (Negative) Urine Blood Moderate A (Negative) Urine Nitrite Negative (Negative) Urine Bilirubin Small A (Negative) Urine Urobilinogen 1.0 A (0.2) mg/dL Ur Leukocyte Esterase Small A (Negative) U Hyaline Cast (Auto) 0-2 (0-2) /LPF Urine Microscopic RBC 6-10 A (0-5) /HPF Urine Microscopic WBC 3-5 (0-5) /HPF Ur Epithelial Cells Few (None Seen) /HPF Urine Bacteria Rare A (None Seen) /HPF Urine Culture Reflexed YES (NO) 03/05/24 03/05/24 Range/Units 12:07 12:07 WBC 11.7 H (3.98-10.04) x10^3/uL RBC 4.27 (3.93-5.22) x10^6/uL Hgb 13.2 (11.2-15.7) g/dL Hct 39.7 (34.1-44.9) % MCV 93.0 (79.4-94.8) fL MCH 30.9 (25.6-32.2) pg MCHC 33.2 (32.2-35.5) g/dL RDW 13.2 (11.7-14.4) % Plt Count 166 L (182-369) x10^3/uL MPV 9.6 (9.4-12.3) fL Segmented Neutrophils 87 H (34.0-71.1) % Lymphocytes (Manual) 9 L (19.3-51.7) % Monocytes (Manual) 3 L (4.7-12.5) % Basophils (Manual) 1 (0.1-1.2) % Platelet Estimate NORMAL (NORMAL) RBC Morphology NORMAL Sodium 139 (135-145) mmol/L Potassium 4.2 (3.5-5.1) mmol/L Chloride 107 (98-107) mmol/L Carbon Dioxide 25 (22-30) mmol/L Anion Gap 11.3 (5-15) MEQ/L BUN 31 H (7-17) mg/dL Creatinine 1.18 H (0.52-1.04) mg/dL Estimated GFR 47.6 ML/MIN Glucose 108 H (74-106) mg/dL Lactic Acid (0.4-2.0) Calcium 9.3 (8.4-10.2) mg/dL Magnesium 2.1 (1.6-2.3) mg/dL Total Bilirubin 0.70 (0.2-1.3) mg/dL AST 35 (14-36) U/L ALT 27 (0-35) U/L Alkaline Phosphatase 90 (38-126) U/L Troponin I (0.000-0.033) ng/mL NT-Pro-B Natriuret Pep (<300) pg/mL Serum Total Protein 6.4 (6.3-8.2) g/dL Albumin 3.5 (3.5-5.0) g/dL Urine Color (Yellow) Urine Appearance (Clear) Urine pH (4.6-8.0) Ur Specific [place] (1.005-1.030) Urine Protein (Negative) Urine Glucose (UA) (Negative) mg/dL Urine Ketones (Negative) Urine Blood (Negative) Urine Nitrite (Negative) Urine Bilirubin (Negative) Urine Urobilinogen (0.2) mg/dL Ur Leukocyte Esterase (Negative) U Hyaline Cast (Auto) (0-2) /LPF Urine Microscopic RBC (0-5) /HPF Urine Microscopic WBC (0-5) /HPF Ur Epithelial Cells (None Seen) /HPF Urine Bacteria (None Seen) /HPF Urine Culture Reflexed (NO) - Progress Progress: improved Progress Note: 03/05/24 14:18 78 years old with history of hypertension on multiple antihypertensives is evaluated in the ER feeling dizzy lightheaded with low blood pressure. Patient has negative orthostatics. EKG showed sinus rhythm with no ST elevations. Patient is not in any distress. Nonfocal neuroexam. Chest x-ray negative for any acute cardiopulmonary findings. Normal white count, chemistries with mild element of dehydration but no other acute findings. No definite UTI. Negative troponins. Blood pressure remained more than 100 systolic throughout stay in the ER. I do not think patient is septic. I believe patient's hypotensive is secondary to polypharmacy taking multiple antihypertensives and I have recommended not to take clonidine and take it only if blood pressure is more than 160 systolic and monitoring of blood pressure and discussed with primary care. I do not think patient needs any further workup and can be discharged. Discussed signs symptoms of worsening needing return to ER which she seems understanding. 03/05/24 14:24 Counseled pt/family regarding: lab results, diagnosis, need for follow-up, rad results Medical Desision Making - Independent Historian Additional History obtained from: Child - Diagnostic Testing Diagnostic test were ordered, analyzed, and reviewed by me: Yes Radiological Interpretation: Reviewed by me, Teleradiologist Report - Departure Departure Disposition: Home Clinical Impression: Transient hypotension Condition: Stable Critical Care Time: No Referrals: ASPEN MURO [Primary Care Provider] - Follow up with PCP 1 day Instructions: Dealing with Low Blood Pressure from the Drugs You Take Additional Instructions: Drink plenty of fluids to keep yourself well-hydrated. Do not take clonidine and talk to your primary care in the morning. Take clonidine if blood pressure greater than 160 systolic. Return to ER for if having chest pain palpitations, dizziness lightheadedness or persistent low blood pressure etc.
[2024-03-05 12:08] LABS: Hematocrit 39.7 % (34.1-44.9); Hemoglobin 13.2 g/dL (11.2-15.7); Mean Corpuscular Hemoglobin 30.9 pg (25.6-32.2); Mean Corpuscular Hgb Concent. 33.2 g/dL (32.2-35.5); Mean Platelet Volume 9.6 fL (9.4-12.3); Platelet Count 166 x10^3/uL (182-369); Red Blood Count 4.27 x10^6/uL (3.93-5.22); Red Cell Distribution Width 13.2 % (11.7-14.4); White Blood Count 11.7 x10^3/uL (3.98-10.04)
[2024-03-05 12:23] LABS: ALBUMIN 3.5 g/dL (3.5-5.0); ANION GAP 11.3 MEQ/L (5-15); BILIRUBIN,TOTAL 0.7 mg/dL (0.2-1.3); Calcium 9.3 mg/dL (8.4-10.2); Creatinine 1 1.18 mg/dL (0.52-1.04); EST GLOMERULAR FILTRATION RATE 47.6 ML/MIN; MAGNESIUM 2.1 mg/dL (1.6-2.3); Potassium 4.2 mmol/L (3.5-5.1); Total Protein 6.4 g/dL (6.3-8.2)
[2024-03-05 12:34] LABS: NT PRO BNPII 872 pg/mL (<300); TROPONIN < 0.012 ng/mL (0.000-0.033)
--- NOTE | 2024-03-05 12:35 | XRAY ---
CLINICAL HISTORY: gen weakness/hypotension COMPARISON: No prior studies are available for comparison. TECHNIQUE: An X-ray image of the chest is obtained in AP projection. FINDINGS: Pulmonary Parenchyma: Lungs are clear bilaterally. No evidence of consolidation, collapse, or focal opacities. No pulmonary nodules are identified. No evidence of pleural effusion or pleural thickening. Heart and Mediastinum: Heart size and shape are normal. No mediastinal widening or masses. No hilar or mediastinal lymphadenopathy. Bony Thorax: Bony thorax appears intact without fractures or deformities. Soft Tissues: Soft tissues overlying the chest wall are unremarkable. IMPRESSION: No acute cardiopulmonary abnormalities are identified. Electronically Signed by: Gray Lim MD. (03/05/2024 12:30:51 EST)
[2024-03-05 13:12] VITALS: BP 107/53; PULSE 73; RESP 16
[2024-03-05 13:46] LABS: Appearance Cloudy (Clear); Bacteria Rare /HPF (None Seen); Bilirubin Small (Negative); Blood Moderate (Negative); Glucose, Urine Negative (Negative); Ketones Trace (Negative); Leukocyte Esterase Small (Negative); Nitrite Negative (Negative); Protein,Urine Dip 30 (Negative); Specific Gravity 1.025 (1.005-1.030)
[2024-03-05 13:47] LABS: Epithelial Cells Few /HPF (None Seen); Hyaline Casts 0-2 /LPF (0-2)
[2024-03-05 13:57] LABS: Basophil 1 % (0.1-1.2); Lymphocytes 9 % (19.3-51.7); Monocyte 3 % (4.7-12.5); Neutrophils 87 % (34.0-71.1); Platelet Estimate NORMAL (NORMAL); Total Cells Counted 100
[2024-03-05 14:22] VITALS: O2SAT 98
== END 2024-03-05 14:31 | disposition home or self-care (01) ==
LOC: ED 10:31
DX: I95.9 Hypotension, unspecified (principal); R42 Dizziness and giddiness; I10 Essential (primary) hypertension; Z79.899 Other long term (current) drug therapy
CPT/HCPCS: 36415; 71045; 80053; 81001; 83605; 83735; 83880; 84484; 85025; 87086; 93005; 93041; 99284; 99285